=== PATIENT | female | born 1965 | race Two or more races ===

== ENCOUNTER 2020-10-10 01:53 | Emergency (ER) | payer MEDICAID ==
[~2020-10-10] VITALS: Ht 157.5 cm; Wt 79.0 kg
[~2020-10-10 01:53] MED LIST: ASPI-496 PO; FLUT1AER INH; FURO40TA6 PO; INSU100I28 SQ-INSULIN; IPRA3AMP30 NPPB; LISI5TAB7 PO; NICO-486 TD; POTA20TA14 PO; PRED5TAB PO; SIMV10TA18 PO
[2020-10-10] MEDS ORDERED: OXYMETAZOLINE NASAL SPRAY 0.05%,30ML ONE (02:07)
--- NOTE | 2020-10-10 02:25 | NUR ---
MEDICATED PER EMAR WITH AFRIN. EDUCATED ON USE OF WELL NOSE CLIP. EDUCATED ON WHAT TO WATCH FOR WELL IMPORTANCE OF BEARING DOWN, BENDING OVER, ETC TEACH BACK SUCCESSFUL
[2020-10-10] MEDS ORDERED: OXYMETAZOLINE NASAL SPRAY 0.05%, 15ML NAS ONE (02:30)
[2020-10-10 02:38] VITALS: BP 137/88
== END 2020-10-10 02:41 | disposition home or self-care (01) ==
LOC: ED 02:23
DX: R04.0 Epistaxis (principal); I11.0 Hypertensive heart disease with heart failure; I50.9 Heart failure, unspecified; E11.9 Type 2 diabetes mellitus without complications; F17.210 Nicotine dependence, cigarettes, uncomplicated
CPT/HCPCS: 99282; 99406